=== PATIENT | male | born 1985 ===

== ENCOUNTER 2017-04-29 06:38 | Emergency (ER) | payer SELFPAY ==
[2017-04-29 07:03] VITALS: RESP 18
[2017-04-29] MEDS ORDERED: Lidocaine 2% Inj (20ml) INFIL ONE (07:25)
[2017-04-29] MEDS ORDERED: Tetanus/Diphtheria Toxoids 0.5 ml Syringe IM ONE (07:34)
[2017-04-29] MEDS ORDERED: Lidocaine 2% Inj (20ml) ONE (07:34)
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
[2017-04-29 08:43] VITALS: BP 118/68; PULSE 78; TEMP 98.2
[2017-04-29 09:10] VITALS: O2SAT 99
== END 2017-04-29 08:44 | disposition home or self-care (01) ==
LOC: C.ER 06:38
DX: S61.210A Laceration without foreign body of right index finger without damage to nail, initial encounter (principal); S61.211A Laceration without foreign body of left index finger without damage to nail, initial encounter; S61.213A Laceration without foreign body of left middle finger without damage to nail, initial encounter; X99.1XXA Assault by knife, initial encounter; Z23 Encounter for immunization